=== PATIENT | female | born 1950 ===

== ENCOUNTER → 2018-07-01 14:11 | Outpatient (REF) | payer OTHER, MEDICARE, SELFPAY | LOC: LAB 14:11 | PROVIDERS: Visit Provider Physician Assistant | DX: L08.9 Local infection of the skin and subcutaneous tissue, unspecified (principal); Z79.899 Other long term (current) drug therapy; L40.0 Psoriasis vulgaris | CPT/HCPCS: 87070; 87077; 87186; 87205 ==